=== PATIENT | male | born 1970 | race Caucasian/White ===

== ENCOUNTER 2018-05-22 23:54 | Emergency (ER) | payer OTHER, SELFPAY ==
[2018-05-22 23:55] VITALS: BP 141/93; PULSE 61; RESP 15; TEMP 36.8; BMI 27.4
--- NOTE | 2018-05-23 00:20 | ED.VISSUMM ---
- ER Visit Summary Date of Service: 05/23/18 Chief Complaint: Back pain, rash History of Present Illness: The patient is a 47 M who presents with back pain and a rash. He states he has been having pain in his upper back for a couple of days. He has noticed a rash in that area. Denies any injury. He has not had any fevers. He then noticed a rash in the upper part of the stomach. It did not cross the midline. He denies any health problems. Physical Examination: Vital signs are reviewed. Back exam reveals no tenderness to palpation. Skin exam reveals her rash in the right upper part of his abdomen. It is in a dermatomal pattern. It does not cross the midline. Test Results: None performed Emergency Department Course and Treatment: Patient appears to have herpes zoster. He will be treated with acyclovir. He declines anything stronger for pain at home. He will use NSAIDs and will follow up with his PCP Treatment Plan: [] Disposition: Discharge Impression: Shingles This note was generated with [employer] dictation software. It may contain incorrect words, spelling, and punctuation that were not noted in review of the chart prior to signing ED Disposition - Plan for ED Patient: Chief Complaint: Other, Pain/Inj Referrals: Niyah Peña [Primary Care Provider] -
--- NOTE | 2018-05-23 00:22 | ED.DEP ---
ED Disposition - Plan for ED Patient: Disposition: Home or Assisted Living Chief Complaint: Other, Pain/Inj Instructions: ED Shingles Prescriptions: Acyclovir [Zovirax] 800 mg PO 5X/DAY #35 tab Referrals: Niyah Peña [Primary Care Provider] -
[2018-05-23] MEDS: Acyclovir 800 MG Tablet PO (00:48)
== END 2018-05-23 00:51 | disposition home or self-care (01) ==
LOC: ED 05-23 00:42
PROVIDERS: Emergency Provider Emergency Medicine; Family Provider Nurse Practitioner; PCP Nurse Practitioner
DX: B02.9 Zoster without complications (principal)
CPT/HCPCS: 99283

== ENCOUNTER → 2018-08-04 09:26 | Outpatient (CLI) | payer OTHER, SELFPAY ==
--- NOTE | 2018-08-04 09:28 | RAD_ITS ---
STUDY: X-RAY - RIGHT ELBOW REASON FOR EXAM: Male, 48 years old. Mediolateral elbow pain, no trauma TECHNIQUE: 3 view(s) of the elbow. COMPARISON: None. FINDINGS: Normal visualized humerus, radius and ulna. Normal radiocapitellar and ulnotrochlear articulations. Mild subcutaneous soft tissue infiltration along the distal medial humerus.. RAD/Elbow min 3 Views IMPRESSION: Mild soft tissue swelling. There is no acute displaced fracture or dislocation. Electronically Signed: Solange Rodríguez MD at 7:26 EST , Service support ,
== END ==
PROVIDERS: Family Provider Nurse Practitioner; PCP Nurse Practitioner; Referring Provider Physician Assistant; Visit Provider Physician Assistant
DX: M25.521 Pain in right elbow (principal)
CPT/HCPCS: 73080

== ENCOUNTER 2018-08-23 09:00 | Outpatient (RCR) | payer OTHER, SELFPAY ==
--- NOTE | 2018-08-08 11:09 | HP.PTEVAL_ITS ---
Patient's Visit Information KATALINA PATEL is a 48 year old M referred to Physical Therapy by Nate Cotton with a diagnosis of L lateral peroneal tendonitis. Date of Evaluation: 08/03/18 Physical Therapist: Navi Bailey - Visit Plan Frequency: 2-3x /Week Duration: 4 Weeks Plan: Start with graston and DN to lateral peroneals thoughout muscle belly and muscle tendon junction. Add in eccentric peroneal strengthenning as able. Progress back to running/tennis as tolerated without increase in symptoms. - Subjective Subjective: Pt. is here today for his initial evaluation with diagnosis of L lateral peroneal tendonitis. Pt. reports increasing his running over the past few months without much issue. Pt. recently tried to get back into tennis and since doing so has had a lot lateral ankle/fibular pain. He reports really only having issue when attempting to run, but has stopped him from running at this point in time. 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 Pt. denies N/T, no xrays, but has no pain with walking. He has trialled over the counter NSAIDS, minimal relief. No ice or heat. Pt. is hopeful to reduce symptoms in order to get back to playing tennis and running without limitations. - Pain L lateral ankle Pain Intensity (Out of 10): 1 Pain Intensity Range: 0, 6 - Objective POSTURE: Pt. has normal posture in stance. Normal foot and knee postioning. No genu valgum/varus noted. normal talar postioning, no pes planus noted. PALPATION: Pt. has increased tenderness at distal aspect of peronus longus tendon just superior to lateral malleous and tenderness as musculotendon junction. No pain at peronus brevious. NEURO: Normal throughout. Normal sensa tion, normal DR bilaterally. ROM: normal L ankle ROM without increase in symptoms with all over pressures. MMT: 5/5 throughout B ankles. Mild increase in symptoms with L ankle EVR, minimal. GAIT: Pt. has normal gait pattern without increase in symptoms. Normal knee and ankle/foot positoning. STAIRS: Normal. Pt. did not have shoes to run in this date. - Goals Goal 1:: PT. to be I with HEP. Goal Time Frame: 4-6 Weeks Goal 2:: Pt. to have no pain with walking. Goal Time Frame: 4-6 Weeks Goal 3:: Pt. able to resume running without increase in symptoms. Goal Time Frame: 4-6 Weeks Goal 4:: Pt. able to resume playing tennis without increase in symptoms. Goal Time Frame: 4-6 Weeks - Rehabilitation Potential Physical Therapy Diagnosis: Pt. has signs and symptoms consistent with L lateral peroneal tendonitis. Pt would benefit from PT to reduce inflammation, eccentricalyl strengthen the peroneals and progress back to recreational activities as tolerated. Rehabilitation Potential: Excellent - Anticipated Interventions Patient/Client Instruction: Educate patient on: Condition, Plan of Care, Risk Factors, Benefits of Fitness Program For the Purpose of:: To improve decision making, To facilitate caregiver knowledge, To improve self management, To prevent re-injury, To improve ability to perform tasks related to life management, To improve tolerance to ADL's Therapeutic Exercise to Include: Strength training, Power training, Postural training, Flexibilty training, Gait and locomotor training, Passive ROM, Active ROM For the Purpose of:: To decrease pain, To decrease swelling/inflammation, To i ncrease ROM, To improve nutrient delivery to tissue, To increase oxygenation perfusion, To improve muscle performance and motor function, To improve ability to perform ADL's Manual Therapy Techniques to Include: Mobilization, Functional dry needling, Soft tissue mobilization For the Purpose of:: To decrease pain, To decrease swelling/inflammation, To increase ROM Thank you for the opportunity to evaluate your patient. For Medicare and Medicare HMO plans, please review the plan of care and approve it. It will need to be FAXED BACK to us at [phone] for Medicare purposes. Please let me know if there are questions or concerns regarding this plan of care. Physician Signature: Date:
--- NOTE | 2018-08-18 08:48 | HP.OTEVAL_ITS ---
Patient's Visit Information KATALINA PATEL is a 48 year old M, referred to Occupational Therapy by Nate Cotton, with a diagnosis of lat./med. epicondylitis.. Date of Evaluation: 08/08/18 Occupational Therapist: Kelly Morrison, OTR/L, CHT - Subjective Subjective: pt. reports that he has always had R elbow pain when exercising, but recently starting playing tennies again and noticed and exacerbation of pain in R elbow. 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 - Pain R arm 0 Pain Intensity Range: 0, 1, 2, 3, 4, 5, 6, 7, 8 - Objective Objective/Observation: R arm is larger (pt. reports this has always been this way) - ROM ROM Comments: WNL - Strength Elbow: resistive pronation is painful for pt. 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 by completing strengthening exercises and stretches in order to complete BADL?s and IADL?s. Patient will improve lateral and tripod grasps by 5 lbs. by completing strengthening and stretching exercises in order to complete BADL?s and IADL?s. Goal:: Patient will report overall decrease in pain of <4 after repetitive movement and while sleeping in order to complete BADL?s and IADL?s. Goal:: Patient will demo understanding of joint protection recommendations for increased I with BADL?s and IADL?s. - Rehabilitation General Assessment: pt. arrives with lat./med. epicondylitis. after repetitive movement of elbow. pt. presents with decreased strength, increased pain with movement, decreased ability to complete BADL's and IADL's. pt. will benefit from OT services 2x/wk for 3 weeks. OT provided US to lat. and med. R elbow to decrease pain and increase circulation to area. OT provided friction massaging and hawk tool over the scar tissue to further break it up in order to decrease pain. OT provided education to pt. about diagnosis and differerent tx options. Rehabilitation Potential: Good - Anticipated Interventions Anticipated Interventions: A/AAROM/PROM, Strengthening, Triggerpoint Release, Modalities, Joint Protection/Energy Conservation, Ergonomic Education, ADL Training, Home Program - Visit Plan Frequency: 2x /Week Duration: 3 Weeks TEXT: Thank you for the opportunity to evaluate your patient. For Medicare and Medicare HMO plans, please review the plan of care and approve it. It will need to be FAXED BACK to us at [phone] for Medicare purposes. Please let me know if there are questions or concerns regarding this plan of care. Physician Signature: Date:
--- NOTE | 2018-08-24 11:53 | HP.PTREVAL ---
Nate Cotton, It has been my pleasure to treat KATALINA PATEL over the last 6 visits for L lateral peroneal tendonitis. Please see the progress note below for an update on the physical therapy plan of care! Subjective: Pt. reports I was able to run without much of an issue. Pt. report being HEP compliant with eccentric strengthening. Objective/Function: Pt. tolerated all Pt without adverse reaction. Pt. was able to run without increase ins ymptoms. Pt. instructed to contiune with eccentric loading of peroneals. pt. reports no pain with walking and has full strength. Plan Plan: Pt. to trial exercises on own for 2-3 weeks to determine if able to self manage at this point in time. Goals Goal 1:: PT. to be I with HEP. Goal Time Frame: 4-6 Weeks Goal Progress: Goal Met Goal 2:: Pt. to have no pain with walking. Goal Time Frame: 4-6 Weeks Goal Progress: Goal Met Goal 3:: Pt. able to resume running without increase in symptoms. Goal Time Frame: 4-6 Weeks Goal Progress: Goal Met Goal 4:: Pt. able to resume playing tennis without increase in symptoms. Goal Time Frame: 4-6 Weeks Goal Progress: Progressing Anticipated Interventions Patient/Client Instruction: Educate patient on: Condition, Plan of Care, Risk Factors, Benefits of Fitness Program For the Purpose of:: To improve decision making, To facilitate caregiver knowledge, To improve self management, To prevent re-injury, To improve ability to perform tasks related to life management, To improve tolerance to ADL's Therapeutic Exercise to Include: Strength training, Power training, Postural training, Flexibilty training, Gait and locomotor training, Passive ROM, Active ROM For the Purpose of:: To decrease pain, To decrease swelling/inflammation, To increase ROM, To improve nutrient delivery to tissue, To increase oxygenation perfusion, To improve muscle performance and motor function, To improve ability to perform ADL's Manual Therapy Techniques to Include: Mobilization, Functional dry needling, Soft tissue mobilization For the Purpose of:: To decrease pain, To decrease swelling/inflammation, To increase ROM Please do not hesitate to contact me at [phone] by phone or if you have questions or concerns regarding this new plan of care! Sincerely, Navi Bailey
--- NOTE | 2018-08-26 08:42 | HP.OTDCSUM_ITS ---
HP - OT D/C Summary It has been my pleasure to treat KATALINA PATEL under orders from Nate Cotton, for the diagnosis of lat./med. epicondylitis. for a total of 5 visit(s). Please see the following information for a summary of their discharge status. 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 pain with both. pt. reports having pain in R elbow during functional tasks following conservative method trials. - Goals Patient Goals: Regain Strength, Decrease Pain, Use Hand/Wrist/Arm Normally Again, Sleep Better, Be More Independent in ADLS, Resume Hobbies Goal:: Patient will increase overall senior coldfusion developer strength by 20 lbs. by completing strengthening exercises and stretches in order to complete BADL?s and IADL?s. Patient will improve lateral and tripod grasps by 5 lbs. by completing stre ngthening and stretching exercises in order to complete BADL?s and IADL?s. Goal:: Patient will report overall decrease in pain of <4 after repetitive movement and while sleeping in order to complete BADL?s and IADL?s. Goal:: Patient will demo understanding of joint protection recommendations for increased I with BADL?s and IADL?s. - Plan Plan: cont. US. friction massaging. education about positioning/braces - D/C Information Discharge Comments: patient made progress with overall strength, as noted with an increased senior coldfusion developer strength of 105# in the R affected hand while holding arm with shoulder flexed and elbow extended in neutral position and decrease in strength when holding dynamomoter at side. pt. reported that he is still having pain in the R elbow during functional tasks, as well as, during the senior coldfusion developer strength test. pt. reported that conservative methods did help to alleviate some of the pain. Pt. reported that he is going to discuss progress with MD and look into getting an MRI and potentially a cortisone shot. pt. d/c with no further concerns at this time. pt. educated on further conservative methods to decrease pain. If there are questions or concerns regarding this patient's occupational therapy, please fell free to call me at [phone]. Thank you for the referral of this patient. Sincerely, Kelly Morrison, OTR/L, CHT
--- NOTE | 2019-01-25 14:02 | HP.PT.NRP ---
HP - Discharge Summary (1) - Patient Information KATALINA PATEL was seen in my office for initial evaluation on 08/03/18. The following Plan of Care was established for this patient: Initial Frequency: 2-3x /Week Initial Duration: 4 Weeks - Anticipated Interventions Patient/Client Instruction: Educate patient on: Condition, Plan of Care, Risk Factors, Benefits of Fitness Program For the Purpose of:: To improve decision making, To facilitate caregiver knowledge, To improve self management, To prevent re-injury, To improve ability to perform tasks related to life management, To improve tolerance to ADL's Therapeutic Exercise to Include: Strength training, Power training, Postural training, Flexibilty training, Gait and locomotor training, Passive ROM, Active ROM For the Purpose of:: To decrease pain, To decrease swelling/inflammation, To increase ROM, To improve nutrient delivery to tissue, To increase oxygenation perfusion, To improve muscle performance and motor function, To improve ability to perform ADL's Manual Therapy Techniques to Include: Mobilization, Functional dry needling, Soft tissue mobilization For the Purpose of:: To decrease pain, To decrease swelling/inflammation, To increase ROM This patient was last seen in our office 08/23/18. Pertinent comments regarding their Physical therapy will appear below: Pt. was seen for his peroneal tendoitis. He was treated with DN, strengthening and stretching. Pt. at our last visit was back to running with minimal symptoms. He was to trial exercises on his own for 2-3 weeks adn follow up with PT if needed. PT. has not been seen in several months and will be DC from PT at this point in time. At this point I will be discontinuing this patient from physical therapy. I would be happy to see this patient again in the future if found appropriate by the physician. Thank you! Navi Bailey, DELANEYT
== END 2018-08-23 19:00 | disposition home or self-care (01) ==
LOC: PT 09:00
PROVIDERS: Family Provider Nurse Practitioner; PCP Nurse Practitioner; Referring Provider Podiatrist; Visit Provider Podiatrist
DX: M77.11 Lateral epicondylitis, right elbow (principal); M25.521 Pain in right elbow
CPT/HCPCS: 97035; 97140; 97161; 97166; 97530

== ENCOUNTER → 2018-09-17 07:52 | Outpatient (CLI) | payer OTHER, SELFPAY ==
--- NOTE | 2018-09-17 07:54 | MRI_ITS ---
STUDY: MRI RIGHT ELBOW REASON FOR EXAM: Male, 48 years old. Lateral right elbow pain. TECHNIQUE: Standardized fat and water weighted pulse sequences were obtained in all 3 orthogonal planes. COMPARISON: X-rays of the elbow dated August 04, 2018. FINDINGS: There is a small joint effusion (coronal series 6 image 13). Normal radial collateral ligamentous complex. There is marked common extensor tendinosis with a partial tear at its origin (coronal series 6 images 10-13). Normal ulnotrochlear articulation. Normal ulnar collateral ligamentous complex. There is common flexor tendinosis (coronal series 6 images 13-16). The cubital tunnel is normal, with a normal ulnar nerve. Normal biceps tendon and distal insertion. Normal lacertus fibrosis. Normal brachialis musculotendinous insertion. Normal triceps tendon and teno-osseous insertion. Normal olecranon process. The visualized distal humerus, proximal radius, and ulna are normal. The visualized muscles of the distal arm and proximal forearm are normal. The soft tissue structures are unremarkable. 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 Common flexor tendinosis. Small elbow joint effusion. Electronically Signed: Michael Santiago MD at 13:17 EST , Service support ,
== END ==
PROVIDERS: Family Provider Nurse Practitioner; PCP Nurse Practitioner; Referring Provider Physician Assistant; Visit Provider Physician Assistant
DX: M77.11 Lateral epicondylitis, right elbow (principal); M25.521 Pain in right elbow
CPT/HCPCS: 73221

== ENCOUNTER → 2019-09-26 08:29 | Outpatient (CLI) | payer OTHER, SELFPAY ==
[2019-04-17 10:09] VITALS: BMI 27.4
--- NOTE | 2019-09-26 08:34 | US_ITS ---
STUDY: ABDOMINAL ULTRASOUND - RIGHT UPPER QUADRANT REASON FOR VISIT: Male, 49 years old ELEVATED LFTS TECHNIQUE: Ultrasound evaluation of the right upper quadrant was performed with real-time and static renee-scale imaging. TECHNICAL QUALITY: Adequate. COMPARISON: Prior comparison studies are not available for review at this time. FINDINGS: Liver: The liver measures 17 cm. There is mildly increased, coarsened echogenicity of the liver. The bile ducts are within normal limits. There is hepatic color flow. The direction of portal flow is hepatopetal. There is no demonstrated mass lesion. Gallbladder: Normal distended gallbladder. The gallbladder wall measures 2.5 mm. There is a negative sonographic Boyle''s sign. There is no pericholecystic fluid. There are no gallstones. Common Bile Duct (C.B.D.): The common bile duct measures 3.5 mm. Pancreas: Obscured by bowel contents Right Kidney: Normal size of the right kidney. The right kidney measures 11.5 x 5.3 x 5.5 cm. Normal renal cortex. The right cortex measures 2 cm. Simple anechoic cyst of the right kidney measures up to 1.8 cm. There is no right hydronephrosis. US/Liver IMPRESSION: 1. No gallstones or biliary obstruction. 2. Simple right renal cyst. Electronically Signed: Edwin Palomo MD ([place]) at 14:50 EST , Service support ,
== END ==
PROVIDERS: Family Provider Nurse Practitioner; PCP Nurse Practitioner; Referring Provider Nurse Practitioner; Visit Provider Nurse Practitioner
DX: R74.8 Abnormal levels of other serum enzymes (principal)
CPT/HCPCS: 76705

== ENCOUNTER → 2019-09-29 12:06 | Outpatient (CLI) | payer SELFPAY ==
[2019-04-17 10:09] VITALS: BMI 27.4
--- NOTE | 2019-09-29 12:13 | CT_ITS ---
STUDY: CARDIAC CALCIUM SCORING - CT CHEST REASON FOR EXAM: Male, 49 years old. FAMILY HISTORY OF AAA. RADIATION DOSAGE (If Supplied By Facility): CTDIvol = ( 12.19 ) mGy, DLP = ( 243.79 ) mGycm TECHNIQUE: Axial non-enhanced images were acquired through the heart for the sole purpose of measuring coronary artery calcium. Individualized dose optimization techniques were used for this CT. COMPARISON: None. FINDINGS: Visualized surrounding anatomy: Normal. Left Main Coronary Artery: 0 Left Anterior Descending Artery: 0 Left Circumflex Artery: 0 Right Coronary Artery: 0 Other: 0 Total Calcium Score: 0 CT/Limited Chest CT w/CCTA IMPRESSION: A Calcium Score of 0 places the patient in the approximate 0 percentile, based on the [employer] data calculator. Please go to: [email or web address][facility].org/Calcium/input.aspx , for a description of the calculator. Electronically Signed: Bob Bailey, at 1:21 EST Tel , Service support ,
[2019-09-29 12:37] VITALS: BP 127/70; PULSE 72; RESP 16; O2SAT 99; BMI 27.7
--- NOTE | 2019-09-29 14:10 | CA.SCORE ---
Calcium Scoring Date of Study:: 09/29/19 Coronary Calcium Scoring: High-resolution Computed Tomographic imaging of the chest was performed on [ ], with particular attention paid to the coronary arteries. Images from the examination were analyzed for the presence and extent of coronary artery calcification , using coronary calcium quantification software. The patient tolerated the procedure well and there were no complications. The results of the coronary calcification analysis are provided below. - Findings Left Main (LM): 0 Left Anterior Descending (LAD): 0 Left Circumflex (LCX): 0 Right Coronary Artery (RCA): 0 Total Agatston Score: 0 Percentile Rankin Calcium Scoring Interpretation: 0 No identifiable atherosclerotic plaque. Very low cardiovascular disease risk. <5% chance of presence coronary artery disease A Negative Examination
== END ==
PROVIDERS: Family Provider Nurse Practitioner; PCP Nurse Practitioner; Referring Provider Nurse Practitioner; Visit Provider Nurse Practitioner
DX: I34.0 Nonrheumatic mitral (valve) insufficiency (principal); Z85.49 Personal history of malignant neoplasm of other male genital organs
CPT/HCPCS: 75571; 76380

== ENCOUNTER 2020-01-03 12:00 | Outpatient (RCR) | payer OTHER, SELFPAY ==
[2019-09-29 12:37] VITALS: BMI 27.7
--- NOTE | 2019-12-18 14:04 | HP.PTEVAL ---
Patient's Visit Information KATALINA PATEL is a 49 year old M referred to Physical Therapy by GREGORIO MORALES with a diagnosis of Lumbar strain. Date of Evaluation: 12/18/19 Physical Therapist: DENIA Escobar - Visit Plan Frequency: 2-3x /Week Duration: 4 Weeks Plan: 2-3X/ week for 4 weeks for centralization of symptoms using extension principle, postural exercises, core stability with HEP and modalities as needed. - Subjective Subjective: Pt reports that he tweaked his back on Wednesday and went to [facility] walkin in clinic on Wednesday morning. They took x-rays and nothing out of the ordinary. In High School he had a partially HD and since then maybe he stirred it up 1-2 times since then and then he was moving things around in the garage and tweaked it. He is on a pain med and they called him in muscle relaxors. The spaces looked good on x-ray. Current sx: center of LB right above where his pants are at. He has no pain down his legs. He has to use his arms to push himself up. If he is standing and if he has to step back, that will trigger his pain. He sleeps descent. He lays on his stomach a lot. He has been doing some press ups at home. He notices that if he slupms at home it starts to hurt. 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 No weakness in his legs. He will buckle because of the pain but nothing bad. - Pain back pain Pain Intensity (Out of 10): 4 Pain Intensity Range: 10 - Objective Gait: Walks with a normal gait pattern. Able to walk on heels and toes with not difficulty although he might feel a little difficulty walking on the R heel. LE MMT: B hip flex 4-/5, B knee ext and flexion 4/5, B hip abd 4/5. Trunk AROM: flexion 25%, ext 5%, SB R 75%m SB L 80%. Tight B HS. Patellar DTR 2+/3. Prone MARIO X 10... same pain as prone lying. Prone PRess up 3 X 10... less pain. Prone Press up 3 X 10 with Pt sag 3 X 10. Prone Press up with therapist OP with a towel 2 X 10 - Goals Goal 1:: I HEP Goal Time Frame: 4-6 Weeks Goal 2:: Increase trunk AROM to 75% normal ROM each plane without pain Goal Time Frame: 4-6 Weeks Goal 3:: Sit with upright posture during treatment sessions and demonstrate good posture with L support (towel roll) if needed) Goal Time Frame: 4-6 Weeks Goal 4:: Decrease pain to 1/10 after a long work day Goal Time Frame: 4-6 Weeks - Rehabilitation Potential Rehabilitation Potential: Good - Anticipated Interventions Patient/Client Instruction: Educate patient on: Condition, Plan of Care For the Purpose of:: To decrease pain, To decrease swelling/inflammation, To increase ROM, To improve nutrient delivery to tissue, To improve muscle performance and motor function, To improve ability to perform ADL's, To increase tolerance to activity/condition/position, To improve ability of physical actions for home/community/work/leisure, To improve gait and locomotor functions, To decrease soft tissue restriction, To increase flexibility/ROM Therapeutic Exercise to Include: Strength training, Body mechanics, Postural training, Flexibilty training, Gait and locomotor training, Active ROM, Dynamic Lumbar Stabilization, Vianey Exercises, Scapular Strength/Stabilization For the Purpose of:: To decrease pain, To increase ROM, To improve nutrient delivery to tissue, To improve muscle performance and motor function, To improve ability to perform ADL's, To increase tolerance to activity/condition/position, To improve performance and independence with ADL's, To decrease level of supervision to perform tasks, To improve ability of physical actions for home/community/work/leisure, To improve gait and locomotor functions, To improve health of tissue, To decrease soft tissue restriction, To increase flexibility/ROM Manual Therapy Techniques to Include: Mobilization, Passive ROM, Soft tissue mobilization For the Purpose of:: To decrease pain, To decrease swelling/inflammation, To increase ROM, To improve nutrient delivery to tissue, To improve muscle performance and motor function IF ES: Yes Cryotherapy (ice pack, ice massage): Yes Thermo therapy (hot pack): Yes Ultrasound (thermal/non thermal): Yes For the Purpose of:: To decrease pain, To decrease swelling/inflammation, To increase ROM, To improve nutrient delivery to tissue, To improve muscle performance and motor function, To improve ability to perform ADL's Thank you for the opportunity to evaluate your patient. For Medicare and Medicare HMO plans, please review the plan of care and approve it. It will need to be FAXED BACK to us at [phone] for Medicare purposes. For Medicare only, by signing this I certify the plan of care. Please let me know if there are questions or concerns regarding this plan of care. Physician Signature: Date:
--- NOTE | 2020-01-03 12:28 | HP.PTDCSUM ---
It has been my pleasure to treat KATALINA PATEL referred by GREGORIO MORALES, with the diagnosis of Lumbar strain for a total of 7 visit(s). Discharge Date: 01/03/20 Please see the following information for a summary of their discharge status. Subjective: Pt feels that he is good to good and still doing his exercises. He retires after this Wednesday. back pain Pain Intensity (Out of 10): 0 % Improvement: 100 Objective/Function: Trunk AROM: flex 75, ext 100, SB B 100 Goal 1:: I HEP Goal Progress: Goal Met Goal 2:: Increase trunk AROM to 75% normal ROM each plane without pain Goal Progress: Goal Met Goal 3:: Sit with upright posture during treatment sessions and demonstrate good posture with L support (towel roll) if needed) Goal Progress: Goal Met Goal 4:: Decrease pain to 1/10 after a long work day Goal Progress: Goal Met Plan: 2-3X/ week for 4 weeks for centralization of symptoms using extension principle, postural exercises, core stability with HEP and modalities as needed. Discharge Comments: DC PT to HEP If there are questions or concerns regarding this patient's physical therapy, please feel free to call me at [phone]. Thank you for the referral of this patient. Sincerely, Chanel Marrufo, MPT
== END 2020-01-03 19:00 | disposition home or self-care (01) ==
LOC: PT 12:00
PROVIDERS: PCP Nurse Practitioner
DX: S39.012D Strain of muscle, fascia and tendon of lower back, subsequent encounter (principal)
CPT/HCPCS: 97014; 97110; 97161; G0283

== ENCOUNTER → 2021-09-11 12:38 | Outpatient (CLI) | payer OTHER, SELFPAY ==
--- NOTE | 2021-09-11 12:46 | ECHOD_ITS ---
Reason For Study: PALPITATIONS Procedure This was a 2D Doppler, Color Flow transthoracic echocardiogram. The exam was of adequate technical quality. Exam performed in department. Left Ventricle Normal LV size. Left ventricular systolic function is normal. The estimated ejection fraction is 60 %. No evidence for diastolic dysfunction. No regional wall motion abnormalities noted. Right Ventricle Normal RV size. Normal systolic function. Atria Normal left atrium. Normal right atrium. No doppler evidence for ASD. Mitral Valve There is no mitral annular calcification. Normal mitral valve. Trivial mitral valve insufficiency. Tricuspid Valve Normal tricuspid valve. Trivial tricuspid valve insufficiency. Unable to estimate RV systolic pressure due to insufficient tricuspid regurgitant envelope. Aortic Valve Trisinus/trileaflet aortic valve. The aortic valve is not well visualized. Pulmonic Valve The pulmonic valve is not well visualized. Trivial pulmonic valve insufficiency. Great Vessels Mildly dilated aortic root. Pericardium/Pleural No pericardial effusion. MMode/2D Measurements & Calculations LVIDd: 3.7 cm IVSd: 1.0 cm Ao root diam: 4.0 cm LVIDs: 2.5 cm LVPWd: 0.94 cm RVDd: 3.6 cm FS: 31.7 % LAV(MOD-bp): 45.5 ml LA A4 area: 16.3 cm2 LA dimension(2D): 3.6 cm LAV(MOD-bp) Indexed: 20.7 ml/m2 LAV(MOD-sp2): 44.3 ml LAV(MOD-sp4): 41.5 ml RA A4 area: 13.2 cm2 Doppler Measurements & Calculations MV E max ventura: 63.9 cm/sec Lat Peak E' Ventura: 10.1 cm/sec Med Peak E' Ventura: 9.2 cm/sec MV A max ventura: 51.6 cm/sec E/E' lat: 6.3 E/E' med: 6.9 MV E/A: 1.2 MV V2 max: 77.0 cm/sec Ao V2 max: 114.2 cm/sec LV V1 max: 100.3 cm/sec MV max P.4 mmHg Ao max P.2 mmHg LV V1 max P.0 mmHg MV V2 mean: 52.0 cm/sec Ao V2 mean: 73.6 cm/sec LV V1 mean P.6 mmHg MV mean P.2 mmHg Ao mean P.5 mmHg LV V1 mean: 59.0 cm/sec MV V2 VTI: 23.1 cm Ao V2 VTI: 23.0 cm LV V1 VTI: 18.4 cm PA V2 max: 71.1 cm/sec ECHO/Echo Complete Interpretation Summary Left ventricular systolic function is normal. The estimated ejection fraction is 60 %. Trivial mitral valve insufficiency. Trivial tricuspid valve insufficiency. Trivial pulmonic valve insufficiency. Mildly dilated aortic root. Unable to estimate RV systolic pressure due to insufficient tricuspid regurgita nt envelope. No evidence for diastolic dysfunction. Ordering Physician: Niyah Peña Referring Physician: Niyah Peña Performed By: Debi Armstrong, RDCS, RVT
== END ==
PROVIDERS: PCP Nurse Practitioner; Referring Provider Nurse Practitioner; Visit Provider Nurse Practitioner
DX: R00.2 Palpitations (principal)
CPT/HCPCS: 93225; 93226; 93306

== ENCOUNTER 2021-10-29 16:30 | Outpatient (CLI) | payer OTHER, SELFPAY ==
--- NOTE | 2021-10-29 16:35 | CT_ITS ---
STUDY: CTA CHEST REASON FOR EXAM: Male, 51 years old. Atypical chest pain RADIATION DOSAGE (If Supplied By Facility): CTDIvol = ( 20.735 ) mGy, DLP = ( 504.39 ) mGycm TECHNIQUE: The examination was performed with the intravenous administration of IV 100mL Isovue-370. Post-processing of the angiographic images was performed, with multiplanar reformation and 3D reconstruction. Individualized dose optimization techniques were used for this CT. COMPARISON: None. FINDINGS: Normal enhancement of the main pulmonary artery and right and left pulmonary arteries. Normal enhancement of the bilateral peripheral pulmonary arteries. There is no demonstrated pulmonary embolism. Normal thoracic aorta and visualized great vessels. There is borderline aneurysmal dilatation of the ascending thoracic aorta at 4.01 cm. No evidence of periaortic fluid There is no demonstrated aortic dissection. Normal heart and pericardium. Normal mediastinum. Normal hilar regions. Normal visualized trachea and bronchi. The lungs are well expanded. Normal pulmonary parenchyma. Normal pleura. Normal chest wall structures. There are degenerative changes of thoracic spine. Normal visualized upper abdomen. CT/CTA Chest W/WO Contrast IMPRESSION: Borderline aneurysmal dilatation of the ascending thoracic aorta 4.01 cm. No evidence of dissection or periaortic fluid No demonstrated PE No acute pulmonary process Electronically Signed: Jaron Orlando MD at 17:21 EST ,
== END 2021-10-29 23:59 | disposition home or self-care (01) ==
LOC: CT 16:34
PROVIDERS: PCP Nurse Practitioner; Referring Provider Internal Medicine Cardiovascular Disease; Visit Provider Internal Medicine Cardiovascular Disease
DX: I77.810 Thoracic aortic ectasia (principal)
CPT/HCPCS: 71275; Q9967

== ENCOUNTER 2021-12-12 07:29 | Day surgery (SDC) | payer OTHER, SELFPAY ==
[2021-12-12 07:56] VITALS: BP 136/94; PULSE 68; RESP 15; TEMP 36.8; O2SAT 97; BMI 27.3
[2021-12-12] MEDS: Lactated Ringers 1,000 ML 15 ML IV (07:58)
--- NOTE | 2021-12-12 08:35 | H&P.OPEN ---
HPI - General HPI Narrative KATALINA PATEL, is a 51 M who presents for screening colonoscopy. Patient has never had a colonoscopy in the past. Patient does report a half-sister who has had polyps. No other family history of colon cancer. Denies any abdominal pain or blood in the stool. [facility] Medical History (Updated 12/10/21 @ 12:43 by Anel Mcclure) Alcohol use [place] disease Gout History of echocardiogram Hyperlipidemia Home Medications fluticasone propionate 50 mcg/actuation nasal spray,suspension 2 spray INTRANASAL DAILY 08/04/18 [History Last Taken Unknown] Allergy/AdvReac Type Severity Reaction Status Date / Time ampicillin Allergy Other Verified 12/12/21 07:55 Family History (Updated 10/15/21 @ 14:15 by Delia Elena) Mother No problems noted. Sister Heart disease MVP Other Abdominal aortic aneurysm (AAA) CVA (cerebral vascular accident) Surgical History (Updated 12/10/21 @ 12:43 by Anel Mcclure) History of foot surgery History of varicose vein stripping Hx of elbow surgery Social History Smoking Status: Never smoker alcohol intake: current alcohol intake frequency: holidays/special occasions only Alcohol type: beer Past Medical/Surgical History Planned Operation Planned Operative Procedure/s: Colonoscopy, OA S.O.S: No Previous Hospitalizations/Surgeries HX Hospitalizations: No HX of Surgeries: L LEG VEIN ABLATION 2006 X2, SAME PREVIOUS, elbow surgery Any Problems With Anesthesia: Yes (nausea) You/Your Family Experience Fever (Hyperthermia) With Anes: No Cholinesterase deficiency: No Cardiovascular Hx Chest Pain within Last 2 months: No Hx of Irregular Heartbeat and/or Afib: Yes Hx Heart Attack: No Hx Congestive Heart Failure: No Hx Rheumatic Fever: No Hx Hypertension: No Hx Internal Defibrillator: No Hx Pacemaker: No Hx Cardiac Catheterization: No Hx Cardiac Surgery/Stents/Etc.: No Hx Stress Test: No Hx Pain in Legs when Walking/Leg Cramps: No (HAD ECHO ?? 2012, DR HOLLEY, WAS OK,) Respiratory Chronic Cough: No (ALLERGIES NOW, TAKES FLONASE) HX of Shortness of Breath: No Hoarseness: No Hx Chronic Obstructive Pulmonary Disease (COPD): No Hx Asthma: No Hx Emphysema: No Hx Sleep Apnea: No CPAP: No BIPAP: No Hx Respiratory Tract Infection/Cold (presently): No Do You Snore Loudly (louder than talking or can be heard): No Do You Often Feel Tired/ Fatigued/ Sleepy Dring Daytime?: No Has Anyone Observed You Stop Breathing During Sleep?: No Result (for STOP score): Negative Hx Smoking: No Smoking Status: Never smoker Gastrointestinal Hx Gastroesophageal Reflux: No Hx Gastrointestinal Disorders: No Hx Gastrointestinal Bleed: No Hx Ulcer: No Hx Hiatal Hernia: No Difficulty Chewing/Swallowing: No Special diet followed at home: No Hx Unplanned Weight Loss of 20#: No HX Unplanned Weight Gain of 20#: No Neurological Hx Seizures: No HX Syncope/Blackout Spells/Unconsciousness: No Hx Transient Ischemic Attacks (TIA): No Hx Multiple Sclerosis: No Hx Parkinson's Disease: No Hx Head/Neck Injury: No Hx Headaches: No Hx Back Injury/Pain: No Recent Onset of Speech Difficulty: No Restless Legs: No Does patient have nerve stimulator: No Blood Disorder Hx Leukemia: No Bleeding Tendencies: No Hx Deep Vein Thrombosis: No Hx High Cholesterol: No Blood Transmitted Disease: No Hx Hepatitis: No Hx Cirrhosis: No Hx Anemia: No Hx Blood Disorders: No Reproduction Is Patient Lactating: No Hx Hysterectomy: No Hx Tubal Ligation: No Are You Post Menopause: No Genitourinary Hx Renal Disease: No Musculoskeletal Hx Arthritis: No Hx Rheumatoid Arthritis: No Hx Gout: No Recent Onset of an Orthopedic Problem: No Endocrine Hx Diabetes: No Thyroid Disease: No Hx Steroid Therapy: No Psycho/Social Hx Substance Use: No Hx Alcohol Use: No Hx Anxiety: No Hx Depression: No Mental Illness: No Hx Dementia: No Miscellaneous Hx Cancer: No Recent Exposure to Contagious Disease: No Hx of C-Diff: No Any Loose Teeth: No Allergies ampicillin Allergy (Verified 12/12/21 07:55) Other Discharge Is Pt Admitted From a Mcfp, or a Custodial: No Who Could Help: Fiance After D/C, Where Do you Plan to Go: Return Home Vital Signs Vital Signs Vital Signs: 12/12/21 07:56 Temperature 98.3 F Temperature Source Temporal Pulse Rate 68 Respiratory Rate 15 Respiratory Pattern Normal Blood Pressure 136/94 H Blood Pressure Mean 108 Blood Pressure Source Monitor Blood Pressure Position Semi-Fowlers Blood Pressure Location Left Arm Pulse Ox 97 Oxygen Delivery Method Room Air Weight Weight: 207 lb 3.752 oz Body Mass Index (BMI) 27.3 Physical Exam Const alert and oriented x3 Resp normal respiratory effort and normal air movement Cardio regular rate and regular rhythm GI soft to palpation, non-tender and non-distended Assessment & Plan Assessment/Plan (1) Encounter for screening for malignant neoplasm of colon: PLAN: I explained endoscopy in detail to the patient. I explained the risks including but not limited to stroke or heart attack with anesthesia, perforation of the GI tract, bleeding, infection. I explained that any of these could necessitate further emergency surgery. The patient understands and all questions were answered sufficiently. The patient wishes to proceed with procedure. Pee Diehl MD Pager: [facility] [address] [place] [address] [address] [place] [address] Office: Surgery Risks - Colonoscopy Risks Include but are not Limited To: Risks include but are not limited to: Bleeding, perforation requiring further surgery, inability to complete colonoscopy requiring barium enema.
[2021-12-12 09:03] VITALS: BP 136/94; BP 97/69; PULSE 69; RESP 16; TEMP 36.8; O2SAT 98
[2021-12-12 09:10] VITALS: BP 100/67; BP 136/94; PULSE 72; RESP 16; O2SAT 98
--- NOTE | 2021-12-12 09:10 | OP.COLON_ITS ---
Patient Name: Clint Hamilton Procedure Date: 12/12/2021 8:34 AM Date of : 1970 Age: 51 Procedure: Colonoscopy Indications: Screening for colorectal malignant neoplasm Providers: Pee Diehl MD Medicines: Monitored Anesthesia Care Patient Profile: This is a 51 year old male. Refer to note in patient chart for documentation of history and physical. Last Colonoscopy: none. The patient's first colonoscopy is today. Complications: No immediate complications. Procedure: Pre-Anesthesia Assessment: - Prior to the procedure, a History and Physical was performed, and patient medications and allergies were reviewed. The patient's tolerance of previous anesthesia was also reviewed. The risks and benefits of the procedure and the sedation options and risks were discussed with the patient. All questions were answered, and informed consent was obtained. Prior Anticoagulants: The patient has taken no previous anticoagulant or antiplatelet agents. After reviewing the risks and benefits, the patient was deemed in satisfactory condition to undergo the procedure. After I obtained informed consent, the scope was passed under direct vision. Throughout the procedure, the patient's blood pressure, pulse, and oxygen saturations were monitored continuously. The Colonoscope was introduced through the anus and advanced to the cecum, identified by appendiceal orifice and ileocecal valve. The colonoscopy was performed without difficulty. The patient tolerated the procedure well. The quality of the bowel preparation was good. Scope In: 8:48:51 AM Scope Withdrawal Time 0 hours 6 minutes 37 seconds Scope Out: 8:59:12 AM Total Procedure Duration Time 0 hours 10 minutes 21 seconds Findings: The entire examined colon appeared normal on direct and retroflexion views. Impression: - The entire examined colon is normal on direct and retroflexion views. - No specimens collected. Recommendation: - Discharge patient to home. - Resume previous diet. - Continue present medications. - Repeat colonoscopy in 10 years for screening purposes. Procedure Code(s): --- Professional --- 31601, Colonoscopy, flexible; diagnostic, including collection of specimen(s) by brushing or washing, when performed (separate procedure) Diagnosis Code(s): --- Professional --- Z12.11, Encounter for screening for malignant neoplasm of colon CPT copyright 2017 [employer]. All rights reserved. The codes documented in this report are preliminary and upon core manager review may be revised to meet current compliance requirements. Pee Diehl MD 12/12/2021 9:09:54 AM This report has been signed electronically. Number of Addenda: 0 Note Initiated On: 12/12/2021 8:34 AM
--- NOTE | 2021-12-12 09:11 | OP.CCLET_ITS ---
12/12/2021 Niyah Peña, NEHA [address] [place] [address] Re : Colonoscopy procedure for Clint Toscanobowski Dear Ms. Peña This procedure was performed on Sunday, December 12, 2021. My impressions and recommendations are as follows: Impressions : - The entire examined colon is normal on direct and retroflexion views. - No specimens collected. Recommendations : - Discharge patient to home. - Resume previous diet. - Continue present medications. - Repeat colonoscopy in 10 years for screening purposes. My findings are described in the full procedure note, which is enclosed. If I can be of further assistance, please feel free to contact me at Doctor phone number(s): , Work: . Sincerely, Pee Diehl MD 12/12/2021 9:09:54 AM This report has been signed electronically.
[2021-12-12 09:15] VITALS: BP 120/85; BP 136/94; PULSE 71; RESP 16; O2SAT 99
[2021-12-12 09:17] VITALS: BP 123/80; BP 136/94; PULSE 65; RESP 16; TEMP 36.8; O2SAT 97
[2021-12-12 09:28] VITALS: BP 136/94
== END 2021-12-12 23:59 | disposition home or self-care (01) ==
LOC: EN 07:31 → AC 07:33
PROVIDERS: PCP Nurse Practitioner; Referring Provider Nurse Practitioner; Visit Provider Surgery
PROC: 0DJD8ZZ Inspection of Lower Intestinal Tract, Via Natural or Artificial Opening Endoscopic (ICD-10-PCS; CPT 45378; principal; 2021-12-12 08:40)
DX: Z12.11 Encounter for screening for malignant neoplasm of colon (principal); I77.810 Thoracic aortic ectasia; E78.5 Hyperlipidemia, unspecified; E80.4 Gilbert syndrome; R00.2 Palpitations
CPT/HCPCS: 45378; J7120; J2405

== ENCOUNTER → 2022-09-08 | Outpatient (CLI) | payer OTHER, SELFPAY ==
[2022-09-08 10:14] LABS: Absolute Lymphocyte Count 2.27 X10^3/uL (0.83-4.51); Absolute Neutrophil Count 1.9 X10^3/uL (2.0-7.7); Basophil# 0.03 X10^3/uL; Basophil% 0.6 % (0-1); Hematocrit 44.8 % (40-54); Hemoglobin 15.5 g/dL (13.0-16.5); Lymphocyte # 2.27 X10^3/ul (0.83-4.51); Lymphocyte % 41.7 % (19-41); Mean Corp Hgb Conc 34.6 g/dL (32-36); Mean Corpuscular Hgb 32.3 pg (27.0-32.0); Mean Corpuscular Volume 93.3 fL (80-94); Mean Platelet Vol. 9.9 fl (6.2-12.0); Monocyte# 0.65 X10^3/uL; Monocyte% 11.9 % (0-10); NRBC Flagged by Analyzer 0 % (0-5); Neutrophil # 1.88 X10^3/uL (2.7-7.7); Neutrophil % 34.6 % (47-70); Platelet Count 175 K/mm3 (150-450); RBC Distribution Width CV 11.5 % (11.6-14.6); RBC Distribution Width SD 39.5 fl (35.1-43.9); White Blood Count 5.4 K/mm3 (4.4-11.0)
[2022-09-08 10:59] LABS: Hemoglobin A1c 5.2 % (3.8-5.6)
[2022-09-08 11:17] LABS: AST(SGOT) 20 U/L (15-37); Alanine Aminotransfer ALT/SGPT 39 U/L (16-61); Albumin, Serum 3.4 g/dL (3.2-5.0); Alkaline Phosphatase 61 U/L (45-117); Anion Gap 7 (5-15); BUN 14 mg/dL (7-18); BUN/Creat Ratio 13.6 RATIO (10-20); Calcium,Total 8.5 mg/dL (8.5-10.1); Chloride 104 mmol/L (98-107); Cholesterol 197 mg/dL (200); Creatinine, Serum 1.03 mg/dL (0.70-1.30); EST Glomerular Filtration Rate 81 mL/min (>60); Est Glom Filt Rate - Afr Amer 98 mL/min (>60); Globulin 3.3 g/dL (2.2-4.2); Glucose 95 mg/dL (74-106); High Density Lipoprotein 61 mg/dL; Potassium 3.5 mmol/L (3.5-5.1); Protein, Total 6.7 g/dL (6.4-8.2); Sodium Level 142 mmol/L (136-145); Thyroid Stim Hormone (TSH) 0.96 uIU/mL (0.358-3.74); Triglycerides 113 mg/dL; Very Low Density Lipoprotein 23 mg/dL (5-40)
== END | disposition home or self-care (01) ==
LOC: MTLAB 07:37
PROVIDERS: PCP Family Medicine; Referring Provider Family Medicine; Visit Provider Family Medicine
DX: Z00.00 Encounter for general adult medical examination without abnormal findings (principal); Z13.1 Encounter for screening for diabetes mellitus; Z13.220 Encounter for screening for lipoid disorders; Z13.29 Encounter for screening for other suspected endocrine disorder; Z13.0 Encounter for screening for diseases of the blood and blood-forming organs and certain disorders involving the immune mechanism
CPT/HCPCS: 36415; 80053; 80061; 83036; 84443; 85025

== ENCOUNTER → 2022-09-30 | Outpatient (CLI) | payer OTHER, SELFPAY ==
--- NOTE | 2022-09-30 14:39 | ECHOD_ITS ---
Version 2 Reason For Study: HTN Procedure This was a 2D Doppler, Color Flow transthoracic echocardiogram. Exam performed in department. Left Ventricle Normal LV size. Mild concentric left ventricular hypertrophy. Left ventricular systolic function is normal. No regional wall motion abnormalities noted. Right Ventricle Normal RV size. Normal systolic function. Atria Normal left atrium. Normal right atrium. Hypermobile atrial septum. Mitral Valve Normal mitral valve. Tricuspid Valve Normal tricuspid valve. Aortic Valve Normal aortic valve. Trisinus/trileaflet aortic valve. Pulmonic Valve Normal pulmonic valve. Great Vessels Mildly dilated aortic root. The pulmonary artery is normal size. Normal inferior vena cava. Pericardium/Pleural No pericardial effusion. MMode/2D Measurements & Calculations LVIDd: 4.3 cm IVSd: 1.3 cm Ao root diam: 3.8 cm LVIDs: 2.6 cm LVPWd: 1.3 cm RVDd: 3.8 cm FS: 38.3 % LAV(MOD-sp4): 39.3 ml LVAd ap4: 33.0 cm2 SV(MOD-sp4): 57.1 ml LVLd ap4: 9.0 cm EDV(MOD-sp4): 97.3 ml EDV(sp4-el): 102.7 ml LVAs ap4: 18.4 cm2 LVLs ap4: 7.5 cm ESV(MOD-sp4): 40.2 ml ESV(sp4-el): 38.5 ml EF(MOD-sp4): 58.7 % EF(sp4-el): 62.5 % SV(sp4-el): 64.2 ml LA A4 area: 17.0 cm2 LA dimension(2D): 3.3 cm RA A4 area: 16.0 cm2 Time Measurements MV dec time: 0.26 sec Doppler Measurements & Calculations MV E max ventura: 50.0 cm/sec Lat Peak E' Ventura: 15.6 cm/sec Med Peak E' Ventura: 10.4 cm/sec MV A max ventura: 48.2 cm/sec E/E' lat: 3.2 E/E' med: 4.8 MV E/A: 1.0 MV V2 max: 67.8 cm/sec Ao V2 max: 124.7 cm/sec MV max P.8 mmHg MV dec slope: 227.3 cm/sec2 Ao max P.2 mmHg MV V2 mean: 46.7 cm/sec Ao V2 mean: 91.1 cm/sec MV mean P.96 mmHg Ao mean P.7 mmHg MV V2 VTI: 22.4 cm Ao V2 VTI: 28.2 cm AV (velocity ratio): 1.0 LV V1 max: 131.7 cm/sec PA V2 max: 88.9 cm/sec LV V1 max P.9 mmHg PA V2 mean: 61.7 cm/sec LV V1 mean P.5 mmHg LV V1 mean: 86.1 cm/sec LV V1 VTI: 28.3 cm ECHO/Echo Complete Interpretation Summary Normal LV size. Left ventricular systolic function is normal. Mildly dilated aortic root. Hypermobile atrial septum. Mild concentric left ventricular hypertrophy. Ordering Physician: Cornelio Parrish Referring Physician: Cornelio Parrish Performed By: Mohini Allan RCS
== END | disposition home or self-care (01) ==
PROVIDERS: PCP Family Medicine; Referring Provider Internal Medicine Cardiovascular Disease; Visit Provider Internal Medicine Cardiovascular Disease
DX: I77.810 Thoracic aortic ectasia (principal); I10 Essential (primary) hypertension
CPT/HCPCS: 93306

== ENCOUNTER → 2022-12-18 | Outpatient (CLI) | payer OTHER, SELFPAY ==
[2022-12-18 17:48] LABS: Erythrocyte Sedimentation Rate 4 mm/hr (0-20)
[2022-12-18 17:59] LABS: AST(SGOT) 23 U/L (15-37); Alanine Aminotransfer ALT/SGPT 31 U/L (16-61); Albumin, Serum 3.9 g/dL (3.2-5.0); Alkaline Phosphatase 57 U/L (45-117); Bilirubin, Direct 0.33 mg/dL (0.00-0.30); CRP < 2.90 mg/L (0.0-3.0); Globulin 3.5 g/dL (2.2-4.2); PSA,Total - Annual Screen 0.96 ng/mL (0.00-4.00); Protein, Total 7.4 g/dL (6.4-8.2)
== END | disposition home or self-care (01) ==
LOC: MTLAB 15:54
PROVIDERS: PCP Family Medicine; Referring Provider Family Medicine; Visit Provider Family Medicine
DX: Z00.00 Encounter for general adult medical examination without abnormal findings (principal); G61.0 Guillain-Barre syndrome; Z12.5 Encounter for screening for malignant neoplasm of prostate
CPT/HCPCS: 36415; 80076; 84153; 85652; 86140; G0103

== ENCOUNTER → 2023-05-11 | Outpatient (CLI) | payer OTHER, SELFPAY ==
[2023-05-11 10:09] LABS: Absolute Lymphocyte Count 2.01 X10^3/uL (0.83-4.51); Absolute Neutrophil Count 1.5 X10^3/uL (2.0-7.7); Basophil# 0.02 X10^3/uL; Basophil% 0.5 % (0-1); Eosinophil# 0.21 X10^3/uL; Eosinophils% 4.9 % (0-5); Hematocrit 43.4 % (40-54); Hemoglobin 15.5 g/dL (13.0-16.5); Lymphocyte # 2.01 X10^3/ul (0.83-4.51); Lymphocyte % 47.2 % (19-41); Mean Corp Hgb Conc 35.7 g/dL (32-36); Mean Corpuscular Hgb 32.6 pg (27.0-32.0); Mean Corpuscular Volume 91.4 fL (80-94); Mean Platelet Vol. 10.2 fl (6.2-12.0); Monocyte# 0.48 X10^3/uL; Monocyte% 11.3 % (0-10); NRBC Flagged by Analyzer 0 % (0-5); Neutrophil # 1.53 X10^3/uL (2.7-7.7); Neutrophil % 35.9 % (47-70); Platelet Count 171 K/mm3 (150-450); RBC Distribution Width CV 11.3 % (11.6-14.6); RBC Distribution Width SD 38.1 fl (35.1-43.9); Red Blood Count 4.75 M/mm3 (4.6-6.2); White Blood Count 4.3 K/mm3 (4.4-11.0)
[2023-05-11 10:34] LABS: Hemoglobin A1c 4.9 % (3.8-5.6)
[2023-05-11 11:11] LABS: ALB/GLOB Ratio 1.1 RATIO (0.9-2.4); AST(SGOT) 21 U/L (15-37); Alanine Aminotransfer ALT/SGPT 36 U/L (16-61); Albumin, Serum 3.7 g/dL (3.2-5.0); Alkaline Phosphatase 55 U/L (45-117); Anion Gap 6 (5-15); BUN 12 mg/dL (7-18); BUN/Creat Ratio 12.5 RATIO (10-20); Calcium,Total 8.5 mg/dL (8.5-10.1); Chloride 106 mmol/L (98-107); Cholesterol 182 mg/dL (200); Creatinine, Serum 0.96 mg/dL (0.70-1.30); EST Glomerular Filtration Rate 88 mL/min (>60); Est Glom Filt Rate - Afr Amer 106 mL/min (>60); Globulin 3.5 g/dL (2.2-4.2); Glucose 100 mg/dL (74-106); High Density Lipoprotein 57 mg/dL; Potassium 3.5 mmol/L (3.5-5.1); Protein, Total 7.2 g/dL (6.4-8.2); Sodium Level 139 mmol/L (136-145); Thyroid Stim Hormone (TSH) 1.01 uIU/mL (0.358-3.74); Triglycerides 143 mg/dL; Very Low Density Lipoprotein 29 mg/dL (5-40)
== END | disposition home or self-care (01) ==
PROVIDERS: PCP Family Medicine; Referring Provider Family Medicine; Visit Provider Family Medicine
DX: Z00.00 Encounter for general adult medical examination without abnormal findings (principal); Z13.220 Encounter for screening for lipoid disorders; Z13.1 Encounter for screening for diabetes mellitus; Z13.29 Encounter for screening for other suspected endocrine disorder; Z12.5 Encounter for screening for malignant neoplasm of prostate
CPT/HCPCS: 36415; 80053; 80061; 83036; 84443; 85025

== ENCOUNTER → 2023-12-31 | Outpatient (CLI) | payer OTHER, SELFPAY ==
--- NOTE | 2023-12-31 14:50 | CT_ITS ---
STUDY: CTA CHEST REASON FOR EXAM: Male, 53 years old. Dilated root RADIATION DOSAGE (If Supplied By Facility): CTDIvol = ( 14.01 ) mGy, DLP = ( 547.52 ) mGycm TECHNIQUE: The examination was performed with the intravenous administration of IV 100mL Isovue-370. Post-processing of the angiographic images was performed, with multiplanar reformation and 3D reconstruction. Individualized dose optimization techniques were used for this CT. COMPARISON: Comparison is made with prior study dated October 29, 2021. FINDINGS: Normal enhancement of the main pulmonary artery and right and left pulmonary arteries. Normal enhancement of the bilateral peripheral pulmonary arteries. There is no demonstrated pulmonary embolism. There is aneurysmal dilatation of the ascending aorta. The transverse diameter of the ascending aorta measures 40.5 mm''s. There is no demonstrated aortic dissection. Normal heart and pericardium. No coronary artery calcification is seen. Normal mediastinum. Normal hilar regions. Normal visualized trachea and bronchi. The lungs are well expanded. Normal pulmonary parenchyma. Normal pleura. Normal chest wall structures. Normal osseous structures. Diffuse fatty infiltration of the liver. 2.3 cm cyst in the posterior right kidney. CT/CTA Chest W/WO Contrast IMPRESSION: Stable dilatation of the root of the ascending thoracic with a transverse dimension of 40.5 mm. Electronically Signed: Francisco J Parra MD at 15:24 EDT ,
== END | disposition home or self-care (01) ==
LOC: CT 14:50
PROVIDERS: PCP Family Medicine; Referring Provider Internal Medicine Cardiovascular Disease; Visit Provider Internal Medicine Cardiovascular Disease
DX: I77.810 Thoracic aortic ectasia (principal)
CPT/HCPCS: 71275; Q9967

== ENCOUNTER 2025-03-13 15:00 | Outpatient (RCR) | payer OTHER, SELFPAY ==
--- NOTE | 2025-02-05 16:48 | HP.PTEVAL ---
Patient's Visit Information Visit Information Visit Information: KATALINA PATEL is a 54 year old M referred to Physical Therapy by Ej Edgar PA-C with a diagnosis of STRAIN OF MUSCLE/TENDON OF RTC OF LEFT SHOULDER ,PAIN IN LEFT SHOULDER. Date of Evaluation: 02/05/25 Physical Therapist: Timmy Gao, PT, Cert MDT, OCS Visit Plan Frequency: 2-3x /Week Duration: 4-6 Weeks Plan: PT INTERVENTIONS POSTURAL EX' S ,RTC/SCAPULAR STRENGTHENING AND MODALTIES Subjective Subjective: This 54 y/o male presents to physical therapy with left shoulder pain . Patient has had left shoulder pain for ~ 1 month. Seen PA recommended PT and had x-rays showed spur.No medication. Patient pain located at lateral deltoid. Pain described as ache. Aggravating factors not specific with activities other than exercises push ups and bench press. Alleviating factors rest. Patient pain does not affects sleeping . Denies paresthesia/tingling. 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 Patient condition affects QOL and function/job demands. 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 [employer] Pain Left: Pain Intensity (Out of 10): 0 Comment: no pain at rest ,6/10 with push ups Objective Objective: POSTURE: mild forward posture PALAPTION: unremarkable NEURO: denies paresthesia/tingling ,reflexes intact AROM: shoulder flexion 150 degrees ,abduction 150 degrees with pain OP , ER 90 degrees ,IR T12 MMT: RTC 4/5 ,deltoid 4-/5 mild pain lateral deltoid CAPSULAR : WFL G-H RYTHUM: 1:1 Special Tests C/S Radiculapathy - Left Upper limb tension test: Negative C/S Radiculapathy - Right Upper limb tension test: Negative C/S Radiculapathy - Left Spurlings: Negative C/S Radiculapathy - Right Spurlings: Negative L Shoulder Supine Impingement Test - RC Tear: Negative L Shoulder Lift Off Test - Subscapular Tear: Negative L Shoulder Drop Sign - IS Test: Negative L Shoulder Empty Can - SS: Negative L Shoulder Belly Press - SupScap: Negative L Shoulder Mat[place] Damaso - Impingement: Negative L Shoulder Biceps Load Test - Labrum: Negative L Shoulder Apprehension Test - Anterior Instability: Negative L Shoulder O'Briens - SLAP/A-C: Negative L Shoulder Shrug Sign - OA/Adhesive Capsulitis: Negative Balance/Special Test Scores Quick DASH Score: 11.3625 Goals Goal 1:: Patient to be I with HEP for shoulder Goal Time Frame: 4-6 Weeks Goal 2:: Patient to demonstrate 70% improvement with less pain with exercises Goal Time Frame: 4-6 Weeks Goal 3:: Patient to have no pain with activities and exercises Goal Time Frame: 4-6 Weeks Goal 4:: Patient to improve quick dash by 5 points to improve QOL Goal Time Frame: 4-6 Weeks Rehabilitation Potential Physical Therapy Diagnosis: This patient has left shoulder pain with pain with certain movement and exercises push ups thus benefit from skilled PT Rehabilitation Potential: Good Anticipated Interventions Patient/Client Instruction: Educate patient on: Condition and Plan of Care For the Purpose of:: To decrease pain, To decrease swelling/inflammation, To improve muscle performance and motor function, To improve ability to perform ADL's, To increase tolerance to activity/condition/position, To improve ability of physical actions for home/community/work/leisure, To improve gait and locomotor functions, To increase flexibility/ROM, To improve balance, To reduce risk of recurrence and To improve tolerance to ADL's Therapeutic Exercise to Include: Strength training, Postural training, Active ROM and Scapular Strength/Stabilization Comment: RTC For the Purpose of:: To decrease pain, To increase ROM, To improve muscle performance and motor function, To improve ability to perform ADL's, To increase tolerance to activity/condition/position, To improve ability of physical actions for home/community/work/leisure, To improve health of tissue, To decrease soft tissue restriction and To increase flexibility/ROM TENS: Yes IF ES: Yes Thermo therapy (hot pack): Yes Ultrasound (thermal/non thermal): Yes For the Purpose of:: To decrease pain, To increase ROM, To improve muscle performance and motor function, To increase tolerance to activity/condition/position, To improve ability of physical actions for home/community/work/leisure, To improve health of tissue and To improve tolerance to ADL's Text: Thank you for the opportunity to evaluate your patient. For Medicare and Medicare HMO plans, please review the plan of care and approve it. It will need to be FAXED BACK to us at [phone] for Medicare purposes. For Medicare only, by signing this I certify the plan of care. Please let me know if there are questions or concerns regarding this plan of care. Physician Signature: Date:
--- NOTE | 2025-03-13 15:48 | HP.PTDCSUM ---
Discharge Summary D/C summary: It has been my pleasure to treat KATALINA PATEL referred by Ej Edgar PA-C, with the diagnosis of STRAIN OF MUSCLE/TENDON OF RTC OF LEFT SHOULDER ,PAIN IN LEFT SHOULDER for a total of 8 visit(s). Discharge Date: Please see the following information for a summary of their discharge status. Subjective Subjective: Still have pain especially to side ,driving with arm out front Pain Left: Pain Intensity (Out of 10): 0 Overall Improvement % Improvement: 0 Objective Objective/Function: Objective: POSTURE: mild forward posture PALAPTION: unremarkable NEURO: denies paresthesia/tingling ,reflexes intact AROM: shoulder flexion 150 degrees ,abduction 150 degrees with pain OP , ER 90 degrees ,IR T12 MMT: RTC 4/5 ,deltoid 4-/5 mild pain lateral deltoid CAPSULAR : WFL G-H RYTHUM: 1:1 Goals Goal 1:: Patient to be I with HEP for shoulder Goal Progress: Goal Met Goal 2:: Patient to demonstrate 70% improvement with less pain with exercises Goal Progress: Not Progressing Goal 3:: Patient to have no pain with activities and exercises Goal Progress: Not Progressing Goal 4:: Patient to improve quick dash by 5 points to improve QOL Goal Progress: Not Progressing Plan Plan: rtd mayb MRI D/C Information d/c sentence: If there are questions or concerns regarding this patient's physical therapy, please feel free to call me at [phone]. Thank you for the referral of this patient. Sincerely, Timmy Gao, PT, Cert MDT, OCS Balance/Gait/Functional tests Balance/Special Test Scores Quick DASH Score: 11.3625 Improvement % Improvement: 0
== END 2025-03-13 19:00 | disposition home or self-care (01) ==
LOC: PT 15:00
PROVIDERS: PCP Nurse Practitioner Primary Care; Referring Provider Physician Assistant Surgical; Visit Provider Physician Assistant Surgical
DX: S46.012D Strain of muscle(s) and tendon(s) of the rotator cuff of left shoulder, subsequent encounter (principal); M25.512 Pain in left shoulder
CPT/HCPCS: 97110; 97161; 97530